=== PATIENT | male | born 1960 | race Asian ===

== ENCOUNTER 2024-04-03 12:05 | Inpatient (IN) | payer OTHER ==
[~2024-04-03] VITALS: Ht 172.7 cm; Wt 68.0 kg
[2024-04-03] MEDS: LORazepam 2MG/ML-1ML VIAL IV ONE (12:30)
[2024-04-03] MEDS: SODIUM CHLORIDE 0.9% 1,000 ML IVB ONE (12:30)
--- NOTE | 2024-04-03 12:54 | DVH ---
EXAM: XR Chest, 1 View CLINICAL INDICATION: sob TECHNIQUE: Frontal view of the chest. COMPARISON: None FINDINGS: LUNGS AND PLEURAL SPACES: Unremarkable. No consolidation. No pneumothorax. HEART: Unremarkable. No cardiomegaly. MEDIASTINUM: Unremarkable. Normal mediastinal contour. BONES/JOINTS: Unremarkable. No acute fracture. OTHER FINDINGS: . . . IMPRESSION: No acute cardiopulmonary process.
--- NOTE | 2024-04-03 12:58 | DVH ---
CLINICAL INFORMATION: 64 years old, Male; altered mental status. TECHNIQUE: Axial imaging was obtained through the brain without contrast. Coronal and sagittal refor matted images were obtained, reviewed, and stored. Images were reviewed in brain and bone windows. A ll CT scans at this medical facility are performed using dose modulation techniques as appropriate to a performed exam including the following: Automated exposure control was utilized; adjustment of the MA and/or KV according to patient size; and use of iterative reconstruction technique. CTDIvol = 53.55 mGy DLP = 857.47 mGy-cm COMPARISON: None FINDINGS: There is no acute intracranial hemorrhage or extraaxial fluid collection. No mass effect o r midline shift. The ventricles and sulci are within normal limits in size for age. Basal cisterns ar e patent. The calvarium is unremarkable. Paranasal sinuses and mastoid air cells are clear. IMPRESSION: No CT evidence of acute intracranial abnormality.
--- NOTE | 2024-04-03 13:07 | ED.PDOC ---
Altered Mental Status HPI Comments 64y M who presents to the ED via EMS for chief complaint of ALOC. Per EMS, pt having dizziness and generalized weakness and pt brought to [facility] for evaluation. Prior to entering facility, pt collapsed onto the floor and EMS was called to the scene. EMS upon arrival, states pt was bradycadic and with all vitals in normal range and pt was given atropine. Pt became more alert and was brought to the ED. Pt in the ED, has stable vitals but is noted to have associated chills. Pt in the ED, otherwise denies any recent sick contacts. Chief Complaint: ALOC Time Seen by MD: 13:00 Reviewed Notes: Sales Service Assistant Notes Allergies: Coded Allergies: NO KNOWN ALLERGIES (Unverified , 04/03/24) Information Source: Patient, Emergency Med Personnel Mode of Arrival: EMS Brought in by: EMS Past Medical History PAST MEDICAL HISTORY: DM, High Lipids Surgical History: Unknown Family History Family History: Unknown Social History Smoker: Non-Smoker Alcohol: Denies ETOH Use Drugs: Denies Drug Use Lives In: Home Constitutional: reports: chills, fatigue, weakness; denies: diaphoresis, fever, malaise, sweats, others EENTM: denies: blurred vision, double vision, ear bleeding, ear discharge, ear drainage, ear pain, ear ringing, eye pain, eye redness, hearing loss, mouth pain, mouth swelling, nasal discharge, nose bleeding, nose congestion, nose pain, photophobia, tearing, throat pain, throat swelling, voice changes, others Respiratory: denies: cough, hemoptysis, orthopnea, SOB at rest, shortness of breath, SOB with excertion, stridor, wheezing, others Cardiovascular: denies: chest pain, dizzy spells, diaphoresis, Dyspnea on exertion, edema, irregular heart beat, left arm pain, lightheadedness, palpitations, PND, syncope, others Gastrointestinal: denies: abdomen distended, abdominal pain, blood streaked bowels, constipated, diarrhea, dysphagia, difficulty swallowing, hematemesis, melena, nausea, poor appetite, poor fluid intake, rectal bleeding, rectal pain, vomiting, others Genitourinary: denies: burning, dysuria, flank pain, frequency, hematuria, inc ontinence, penile discharge, penile sore, pain, testicle pain, testicle swelling, urgency, others Neurological: denies: dizziness, fainting, headache, left sided numbness, left sided weakness, numbness, paresthesia, pre-existing deficit, right sided numbness, right sided weakness, seizure, speech problems, tingling, tremors, weakness, others Musculoskeletal: denies: back pain, gout, joint pain, joint swelling, muscle pain, muscle stiffness, neck pain, others Integumetry: denies: bruises, change in color, change in hair/nails, dryness, laceration, lesions, lumps, rash, wounds, others Allergic/Immunocompromised: denies: Difficulty Healing, Frequent Infections, Hives, Itching, others Hematologic/Lymphatic: denies: anemia, blood clots, easy bleeding, easy bruising, swollen glands, others Endocrine: denies: excessive hunger, excessive sweating, excessive thirst, excessive urination, flushing, intolerance to cold, intolerance to heat, unexplained weight gain, unexplained weight loss, others Psychiatric: denies: anxiety, bipolar disorder, depression, hopeless, panic disorder, schizophrenia, sleepless, suicidal, others All Other Systems: Reviewed and Negative Physical Exam General Appearance: Moderate Distress HEENT: Normal ENT Inspection, Pharynx Normal, TMs Normal Neck: Full Range of Motion, Non-Tender, Normal, Normal Inspection Respiratory: Chest Non-Tender, Lungs Clear, No Accessory Muscle Use, No Respiratory Distress, Normal Breath Sounds Cardiovascular: Other (Bradycardia in the field) Breast Exam: Deferred Gastrointestinal: No Organomegaly, Non Tender, No Pulsatile Mass, Normal Bowel Sounds, Soft Genitalia: Deferred Pelvic: Deferred Rectal: Deferred Extremities: No calf tenderness, Normal capillary refill, Normal inspection, Normal range of motion, Non-tender, No pedal edema Musculoskeletal : Apperance: Normal Neurologic: Alert, No Motor Deficits, No Sensory Deficits Cerebellar Function: NOT DONE Reflexes: NOT DONE Skin: Dry, Normal Color, Warm Peripheral Pulses: 3+ Radial (R), 3+ Radial (L) Lymphatic: No Adenopathy Was a procedure done? Was a procedure done?: No Differential Diagnosis (ALOC) Differential Diagnosis: Dehydration, Hypoglycemia, DKA, Encephalopathy, Hypoxemia, Closed Head Injury Other Differential Diagnosis metabolic encephalopathy X-Ray, Labs, Meds, VS Vital Signs Date Time Temp Pulse Resp B/P (MAP) Pulse Ox O2 Delivery O2 Flow Rate FiO2 1/11/25 12:49 96.7 99 30 166/108 (127) 100 04/03/24 12:12 94 PROCEDURE(s): HWOCT - HEAD WITHOUT CONTRAST IMPRESSION: No CT evidence of acute intracranial abnormality. EXAM: XR Chest, 1 View . IMPRESSION: No acute cardiopulmonary process. Patient alert to name. Blood pressure elevated. Unable to answer questions. He is shaking. CT of the head reviewed does not show any acute process. Vitals stable. As per he never had symptoms like this in the past. Has been weak recently which had taken him to the urgent care. He was bradycardic in the field. Was given atropine. Possible TIA. Establish intravenous access. Was given fluids. Reviewed his history. Explained to the family. Time of 1ST Reevaluation: 14:00 Reevaluation 1ST: Unchanged Patient Education/Counseling: Diagnosis, Treatment Family Education/Counseling: Diagnosis, Treatment Departure 1 Departure Time of Disposition: 13:34 Impression: Primary Impression: Bradycardia Additional Impressions: Uncontrolled diabetes mellitus Qualified Codes: E13.65 - Other specified diabetes mellitus with hyperglycemia Metabolic encephalopathy Disposition: ADMITTED INPATIENT Admit to: Med Surg Condition: Guarded Critical Care Note Critical Care Time?: Yes (45 min-critical care time only) Stability Stability form required: No Heart Score Heart Score: Heart Score Response (Comments) Value History Slightly Suspicious 0 EKG Normal 0 Age >65 2 Risk Factors >3 or Hx ASHD 2 Troponin Normal limit 0 Total 4 I personally scribed for YURIY ANAYA MD ([email or web address]) on 04/03/24 at 13:06. Electronically submitted by Mary Silva ([email or web address]). YURIY ANAYA MD Apr 03, 2024 13:06
[2024-04-03 13:49] VITALS: PULSE 68; RESP 12; O2SAT 100
[2024-04-03 14:10] LABS: Urine Bacteria None Seen /hpf (None Seen)
[2024-04-03 14:11] LABS: Basophils # (auto) 0 10 ^3/uL (0-0.2); Basophils % (auto) 0.2 % (0.0-2.0); Eosinophils # (auto) 0 10 ^3/uL (0-0.8); Eosinophils % (auto) 0.1 % (0.0-7.0); Hematocrit 43.7 % (41.0-53.0); Hemoglobin 14.8 g/dL (13.5-17.5); Lymphocytes # (auto) 0.7 10 ^3/uL (0.4-5.4); Lymphocytes % (auto) 4.3 % (10.0-50.0); Mean Corpuscular Hemoglobin 30.6 pg (28.0-32.0); Mean Corpuscular Hgb Conc. 33.9 g/dL (32.0-36.0); Mean Corpuscular Volume 90.3 fL (80.0-100.0); Monocytes # (auto) 0.4 10 ^3/uL (0-1.3); Monocytes % (auto) 2.8 % (0.0-12.0); Neutrophils # (auto) 14.2 10 ^3/uL (1.6-8.6); Neutrophils % (auto) 92.6 % (37.0-80.0); Platelet Count (auto) 237 10^3/uL (140-450); Red Blood Cells 4.84 10^6/uL (4.5-5.90); Red Cell Distribution Width 13.1 % (11.8-14.3); White Blood Cell 15.3 10^3/uL (4.4-10.8)
[2024-04-03 14:26] LABS: Urine Blood Negative /uL (Negative); Urine Clarity Clear (Clear); Urine Color Light-Yellow (Yellow); Urine Protein, UAD Negative (Negative); Urine Specific Gravity 1.017 (1.001-1.035); Urine Squamous Epithelial Cell None Seen /hpf (<5); Urine Urobilinogen Normal (Negative); Urine WBC <1 /hpf (0 - 3)
[2024-04-03 14:28] LABS: Chloride 106 mmol/L (98-107); Potassium 4.1 mmol/L (3.5-5.1); Sodium 140 mmol/L (136-145)
[2024-04-03 14:29] LABS: Anion Gap 8 (5-15); Calcium 9.6 mg/dL (8.7-10.4); Carbon Dioxide 26 mmol/L (20-31)
[2024-04-03 14:34] LABS: BUN/Creatinine Ratio 21.2 (10.0-20.0); Blood Urea Nitrogen 21 mg/dL (9-23)
[2024-04-03 14:35] LABS: Blood Alcohol 3.2 mg/dL (<10)
[2024-04-03 14:36] LABS: Glucose 157 mg/dL (74-106)
[2024-04-03] MEDS ORDERED: DEXTROSE (50%) 50ML SYRG IV PRN (19:30)
[2024-04-03] MEDS ORDERED: ACETAMINOPHEN 325 MG TAB PO PRN (19:30)
[2024-04-03] MEDS ORDERED: DOCUSATE SOD 100 MG CAP PO PRN (19:30)
[2024-04-03 19:38] VITALS: PULSE 70; RESP 13; O2SAT 95
[2024-04-03] MEDS: cefTRIAXone 1GM/50ML D5W 50 ML IV ONE (19:52)
[2024-04-03] MEDS: HYDROcodone-ACET 5/325MG TAB PO PRN (20:14)
[2024-04-03] MEDS: ONDANSETRON HCL 4 MG/2 ML VIAL IV PRN (20:19)
[2024-04-03] MEDS ORDERED: MORPHINE SULFATE INJ 2 MG/ml SYRG IV PRN (21:00)
[2024-04-03] MEDS ORDERED: NITROGLYCERIN 0.4 MG SL TAB SL PRN (21:00)
--- NOTE | 2024-04-03 21:00 | DVHHP2 ---
History of Present Illness Reason for Visit: Altered mental status History of Present Illness The patient is a 64-year-old male with past medical history of hypertension, hyperlipidemia, and diabetes mellitus who presented to [facility] ED for evaluation of altered level of consciousness. Patient reports symptoms pr ogressively get worse with generalized weakness, dizziness, syncopal episode, so EMS were called. Patient was seen and evaluated in the ED, laboratory data shows WBC 15.3, platelets 237, sodium 140, potassium 4.1, BUN 21, creatinine 0.99, GFR 84, glucose 157, troponin 4, blood pressure 171/102 trending down to 141/80, heart rate 62, temperature 97.6 F, O2 saturation 99% on oxygen. Head CT showed no evidence of acute intracranial abnormality. Patient was started on IV antibiotic regimen Rocephin, please see medication orders section in the computer. On my assessment, patient denies chest pain, no headache, no d izziness, no diaphoresis, no diarrhea, no nausea, no vomiting, no fever, no chills. Patient was admitted for further evaluation and medical management. Past Medical History DM, High Lipids, hypertension Past Surgical History Unknown Family History Reviewed, noncontributory to the management of this case. Past Social History The patient lives at home, denies smoking, alcohol or illicit drugs abuse. Review of Systems Constitutional: Yes: Chills, Weakness, Other (Fatigue); No: Fever, Sweats, Malaise Eyes: No: Pain, Vision change, Conjunctivae inflammation, Eyelid inflammation, Other, Redness ENT: No: Ear pain, Ear discharge, Nose pain, Nose discharge, Nose congestion, Mouth pain, Mouth swelling, Throat pain, Throat swelling, Other Respiratory: No: Cough, Dry, Shortness of breath, SOB with excertion, Wheezing, Hemoptysis, Pleuritic Pain, Sputum, Wheezing, Other Cardiovascular: No: Chest Pain, Palpitations, Orthopnea, Paroxysmal Noc. Dyspnea, Edema, Lt Headedness, Other Gastrointestinal: No: Nausea, Vomiting, Abdominal Pain, Diarrhea, Constipation, Melena, Hematochezia, Other Genitourinary: No Dysuria, No Frequency, No Incontinence, No Hematuria, No Retention, No Other Musculoskeletal: No: other, neck pain, shoulder pain, arm pain, back pain, hand pain, leg pain, foot pain Skin: No: Rash, Lesions, Jaundice, Bruising, Other Neurological: No: Weakness, Numbness, Incoordination, Change in speech, Confusion, Seizures, Other Allergies: Coded Allergies: NO KNOWN ALLERGIES (Unverified , 04/03/24) Medications Current Medications Medications Dose Ordered Sig/Verna Route Start Time Stop Time Status Last Admin Dose Admin Ceftriaxone Sodium 50 ml @ 100 mls/hr DAILY@09 IV 04/04/24 09:00 Hydralazine HCl 10 mg Q6HP PRN IV 04/03/24 19:30 Diagnostic Test (Pha) 1 strip ACHS 04/03/24 22:00 Insulin Human Regular ACHS SC 04/03/24 22:00 Dextrose 50 ml UD PRN IV 04/03/24 19:30 Sodium Chloride 10 ml Q8HR IV 04/03/24 22:00 Acetaminophen/ Hydrocodone Bitart 1 tab Q4HP PRN PO 04/03/24 19:30 04/03/24 20:14 1 TAB Ondansetron HCl 4 mg Q4HP PRN IV 04/03/24 19:30 04/03/24 20:19 4 MG Docusate Sodium 100 mg BIDPRN PRN PO 04/03/24 19:30 Acetaminophen 650 mg Q6HP PRN PO 04/03/24 19:30 Exam Vital Signs Vital Signs Date Time Temp Pulse Resp B/P (MAP) Pulse Ox O2 Delivery O2 Flow Rate FiO2 04/03/24 19:38 98.0 70 13 121/73 (89) 95 98.0 04/03/24 13:49 Nasal Cannula* 2 28 General Appearance: Alert, Oriented X3, Cooperative, No acute distress HEENT: Atraumatic, PERRLA, EOMI, Mucous membr. moist/pink Respiratory: Clear to auscultation, Normal air movement Cardiovascular: Regular rate, Normal S1, Normal S2, No murmurs Abdominal: Normal bowel sounds, Soft, No tenderness, No hepatospenomegaly, No masses Extremities: No clubbing, No cyanosis, No edema, Normal pulses, No te nderness/swelling Skin: No rashes, No breakdown, No significant lesion Neuro: Normal speech, Normal tone, Sensation intact, Cranial nerves 3-12 NL, Reflexes 2+, Other (Generalized weakness) Psych/Mental Status: Mental status NL, Mood NL Labs/Xrays Labs Test 04/03/24 13:44 04/03/24 13:40 Range/Units White Blood Count 15.3 H 4.4-10.8 10^3/uL Red Blood Count 4.84 4.5-5.90 10^6/uL Hemoglobin 14.8 13.5-17.5 g/dL Hematocrit 43.7 41.0-53.0 % Mean Corpuscular Volume 90.3 80.0-100.0 fL Mean Corpuscular Hemoglobin 30.6 28.0-32.0 pg Mean Corpuscular Hemoglobin Concent 33.9 32.0-36.0 g/dL Red Cell Distribution Width 13.1 11.8-14.3 % Platelet Count 237 140-450 10^3/uL Mean Platelet Volume 8.0 6.9-10.8 fL Neutrophils (%) (Auto) 92.6 H 37.0-80.0 % Lymphocytes (%) (Auto) 4.3 L 10.0-50.0 % Monocytes (%) (Auto) 2.8 0.0-12.0 % Eosinophils (%) (Auto) 0.1 0.0-7.0 % Basophils (%) (Auto) 0.2 0.0-2.0 % Neutrophils # (Auto) 14.2 H 1.6-8.6 10 ^3/uL Lymphocytes # (Auto) 0.7 0.4-5.4 10 ^3/uL Monocytes # (Auto) 0.4 0-1.3 10 ^3/uL Eosinophils # (Auto) 0 0-0.8 10 ^3/uL Basophils # (Auto) 0 0-0.2 10 ^3/uL Nucleated Red Blood Cells 0.0 % Sodium Level 140 136-145 mmol/L Potassium Level 4.1 3.5-5.1 mmol/L Chloride Level 106 98-107 mmol/L Carbon Dioxide Level 26 20-31 mmol/L Anion Gap 8 5-15 Blood Urea Nitrogen 21 9-23 mg/dL Creatinine 0.99 0.700-1.30 mg/dL Glomerular Filtration Rate Calc 84 >90 mL/min BUN/Creatinine Ratio 21.2 H 10.0-20.0 Serum Glucose 157 H 74-106 mg/dL Calcium Level 9.6 8.7-10.4 mg/dL Troponin I High Sensitivity 4 </=54 ng/L Plasma/Serum Blood Alcohol 3.2 <10 mg/dL Urine Color Light-yellow Yellow Urine Clarity Clear Clear Urine pH 7.0 5.0-9.0 Urine Specific [place] 1.017 1.001-1.035 Urine Protein Negative Negative Urine Ketones 1+ H Negative Urine Blood Negative Negative /uL Urine Nitrite Negative Negative Urine Bilirubin Negative Negative Urine Urobilinogen Normal Negative mg/dL Urine Leukocyte Esterase Negative Negative /uL Urine RBC 1 0 - 3 /hpf Urine WBC <1 0 - 3 /hpf Urine Squamous Epithelial Cells None seen <5 /hpf Urine Bacteria None seen None Seen /hpf Urine Glucose 1+ H Normal mg/dL PATIENT: MILAGROS FIGUEROA ACCT: [id number] UNIT: [id number] : 1960 LOC: ER ROOM / BED: / AGE / SEX: 64 / M ADM STATUS: REG ER SERVICE 1223 ORDERING PHYSICIAN: YURIY ANAYA MD PROCEDURE(s): HWOCT - HEAD WITHOUT CONTRAST REASON: altered ORDER NUMBER(s): [id number], ACCESSION NUMBER(s): [id number] CLINICAL INFORMATION: 64 years old, Male; altered mental status. TECHNIQUE: Axial imaging was obtained through the brain without contrast. Coronal and sagittal reformatted images were obtained, reviewed, and stored. Images were reviewed in brain and bone windows. All CT scans at this medical facility are performed using dose modulation techniques as appropriate to a performed exam including the following: Automated exposure control was utilized; adjustment of the MA and/or KV according to patient size; and use of iterative reconstruction technique. CTDIvol = 53.55 mGy DLP = 857.47 mGy-cm COMPARISON: None FINDINGS: There is no acute intracranial hemorrhage or extraaxial fluid collection. No mass effect or midline shift. The ventricles and sulci are within normal limits in size for age. Basal cisterns are patent. The calvarium is unremarkable. Paranasal sinuses and mastoid air cells are clear. IMPRESSION: No CT evidence of acute intracranial abnormality. ORDERING PHYSICIAN: YURIY ANAYA MD PROCEDURE(s): CXRP - CHEST PORTABLE REASON: sob ORDER NUMBER(s): [id number], ACCESSION NUMBER(s): [id number] EXAM: XR Chest, 1 View CLINICAL INDICATION: sob TECHNIQUE: Frontal view of the chest. COMPARISON: None FINDINGS: LUNGS AND PLEURAL SPACES: Unremarkable. No consolidation. No pneumothorax. HEART: Unremarkable. No cardiomegaly. MEDIASTINUM: Unremarkable. Normal mediastinal contour. BONES/JOINTS: Unremarkable. No acute fracture. OTHER FINDINGS: IMPRESSION: No acute cardiopulmonary process. Assessment/Plan Assessment/Plan Metabolic encephalopathy Generalized weakness Leukocytosis, unspecified Hypertensive urgency Plan 1. Admit to telemetry unit 2. Breathing treatment 3. Pain control management 4. IV antibiotic management 5. Management of fluids and electrolytes 6. Consultation for hospitalist 7. Diagnostic test head CT 8. DVT prophylaxis-on aspirin 9. Repeat labs CBC, CMP in a.m. 10. Continue with current medical management 11. Treatment plan discussed with patient and RN. Patient verbalized understanding. Plan discussed with: Patient, Other (RN) My Orders Orders - BALTAZAR GOLDBERG DNP Procedure Category Date Status Time Consistent DIET 04/04/24 Transmitted Carb(Ccho)Diabetes Breakfast Ceftriaxone 1gm/50ml PHA 04/04/24 In Process D5w (Rocephin) 09:00 Blood Culture [place] 04/03/24 In Process 19:20 Hydralazine Injection PHA 04/03/24 In Process (Apresoline Inject 19:30 Glucose Blood PHA 04/03/24 In Process (Accu-Chek Comfort 22:00 Insulin R (Human) PHA 04/03/24 In Process (Insulin R) 22:00 Dextrose 50% Syringe PHA 04/03/24 In Process 19:30 Allergies RHETT 04/03/24 In Process 19:20 Code Status CODE 04/03/24 Transmitted 19:20 Sodium Chloride Lock PHA 04/03/24 In Process (Saline Lock Ns) 22:00 Oxygen Per Hour RT 04/03/24 Transmitted 19:20 Hydrocodone-Acet PHA 04/03/24 In Process 5/325mg Tab ([place] 19:30 Ondansetron Hcl PHA 04/03/24 In Process (Zofran) 19:30 Docusate Sodium PHA 04/03/24 In Process Capsule (Colace 19:30 Complete Blood Count LAB 04/04/24 Verified 04:00 Comprehensive LAB 04/04/24 Verified Metabolic Panel 04:00 Condition: Serious RHETT 04/03/24 In Process 19:20 Acetaminophen Tablet PHA 04/03/24 In Process (Tylenol Tablet) 19:30 Bedrest With Bathroom RHETT 04/03/24 In Process Privileg 19:20 Sequential RHETT 04/03/24 In Process Compression Device Problem List: (1) Metabolic encephalopathy (2) Hypertensive urgency (3) Leukocytosis, unspecified (4) Generalized weakness Date of Service: Apr 03, 2024 Billing Provider: BALTAZAR GOLDBERG DNP Common Visit Codes: [id number] INP/OBS CARE (HIGH) BALTAZAR GOLDBERG DNP Apr 03, 2024 21:00
[2024-04-03] MEDS: ACCU-CHEK COMFORT CURVE STRIP VI SCH (21:58)
[2024-04-03] MEDS: SODIUM CHLOR 0.9% PF (SALINE LOCK) 10ML VIAL/SYR IV SCH (22:00)
[2024-04-03] MEDS: InsuLIN REG 1unit/0.01ml Soln (100units/ml) SC SCH (22:11)
[2024-04-04] VITALS (9 sets, daily range): BP systolic 112–144; BP diastolic 68–86; PULSE 52–90; RESP 17–20; TEMP 97.4–98.3; O2SAT 92–100
--- NOTE | 2024-04-04 01:51 | ECG ---
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
[2024-04-04 06:24] LABS: Basophils # (auto) 0 10 ^3/uL (0-0.2); Basophils % (auto) 0.3 % (0.0-2.0); Eosinophils # (auto) 0 10 ^3/uL (0-0.8); Hematocrit 42.2 % (41.0-53.0); Hemoglobin 14.5 g/dL (13.5-17.5); Lymphocytes # (auto) 1.1 10 ^3/uL (0.4-5.4); Lymphocytes % (auto) 11.5 % (10.0-50.0); Mean Corpuscular Hemoglobin 30.8 pg (28.0-32.0); Mean Corpuscular Hgb Conc. 34.4 g/dL (32.0-36.0); Mean Corpuscular Volume 89.7 fL (80.0-100.0); Monocytes # (auto) 0.4 10 ^3/uL (0-1.3); Monocytes % (auto) 4.6 % (0.0-12.0); Neutrophils # (auto) 7.7 10 ^3/uL (1.6-8.6); Neutrophils % (auto) 83.6 % (37.0-80.0); Nucleated Red Blood Cells % 0.1 %; Platelet Count (auto) 282 10^3/uL (140-450); White Blood Cell 9.2 10^3/uL (4.4-10.8)
[2024-04-04 06:45] LABS: Alanine Aminotransferase 39 U/L (7-40); Alkaline Phosphatase 109 U/L (46-116); Anion Gap 8 (5-15); Aspartate Aminotransferase 17 U/L (13-40); BUN/Creatinine Ratio 18.1 (10.0-20.0); Blood Urea Nitrogen 15 mg/dL (9-23); Calcium 9.5 mg/dL (8.7-10.4); Carbon Dioxide 24 mmol/L (20-31); Potassium 3.6 mmol/L (3.5-5.1); Sodium 140 mmol/L (136-145)
[2024-04-04 06:46] LABS: Albumin 4.2 g/dL (3.2-4.8); Bilirubin, Total 0.8 mg/dL (0.2-1.0); Total Protein 6.6 g/dL (5.7-8.2)
[2024-04-04 07:02] LABS: Chloride 108 mmol/L (98-107); Glucose 136 mg/dL (74-106)
[2024-04-04] MEDS: cefTRIAXone 1GM/50ML D5W 50 ML IV SCH (09:39)
[2024-04-04] MEDS ORDERED: METF-489 PO (15:04)
[2024-04-04] MEDS ORDERED: ATOR20TA50 PO (15:04)
[2024-04-04] MEDS ORDERED: ALL100T PO (15:04)
--- NOTE | 2024-04-04 19:44 | DVHPN2 ---
Assessment/Plan Assessment/Plan Progress note 64 M admitted for altered level of consciousness. On my exam, patient is fully alert and orietned, complained of spinning sensation and nausea with vomiting since [address] head clear, HINTS negative. Will attempt apley maneuver tomorrrow Physcial exam Alert oriented x3 clear breath sounds s1 s2 RRR no murmur abdomen soft nontender no LE edema labs imaging and ekg reviewed CTH clear assessment and plan vertigo central vs peripheral dehydration 2/2 vomiting elevated bp meclizine zofran will do apley maneuver tomorrow r/o organic causes ns bolus 500 followed by oral hydration will refrain from antihypertensive for now and treat possible underlying cause dvt ppx ambulatory diet regular Plan discussed with: Patient My Orders Orders - SIOBHAN MARTINEZ MD Procedure Category Date Status Time Meclizine Tablet PHA 04/04/24 Transmitted (Antivert Tablet) 22:00 Ondansetron Hcl PHA 04/04/24 Transmitted (Zofran) 19:45 Date of Service: Apr 04, 2024 Billing Provider: SIOBHAN MARTINEZ MD Common Visit Codes: [id number] INP/OBS CARE(HIGH) SIOBHAN MARTINEZ MD Apr 04, 2024 19:44
[2024-04-04] MEDS ORDERED: ONDANSETRON HCL 4 MG/2 ML VIAL IV PRN (19:45)
[2024-04-04] MEDS: MECLIZINE HCL 25 MG TAB PO SCH (21:01)
[2024-04-05 01:00] VITALS: BP 128/89; PULSE 65; RESP 19; TEMP 98.1; O2SAT 99
[2024-04-05 05:00] VITALS: BP 125/77; PULSE 67; RESP 68; TEMP 98.9; O2SAT 49
[2024-04-05 08:10] VITALS: PULSE 58; RESP 16; O2SAT 100
[2024-04-05 17:00] VITALS: BP_SYST 118; BP_SYST 159; BP_DIAS 64; BP_DIAS 90; PULSE 56; RESP 18; TEMP 97.8; O2SAT 99
--- NOTE | 2024-04-05 17:03 | DVH ---
PROCEDURE: MRI BRAIN HEAD WO CONTRAST INDICATION: R/O STROKE EXAM DATE: 04/05/2024 04:30 PM COMPARISON: None TECHNIQUE: MRI of the brain without intravenous contrast. FINDINGS: Diffusion weighted images of the brain demonstrate no evidence of acute infarction. There is no evidence of acute intracranial hemorrhage, extra-axial collection, mass effect, midline s hift, herniation or hydrocephalus. The ventricles, sulci and cisterns appear age appropriate. Mild changes of chronic microvascular ischemic disease There are no signal abnormalities on the susceptibility weighted sequences. The major vascular flow voids are present. The visualized paranasal sinuses and mastoid air cells are clear. The surrounding soft tissues and o sseous structures are unremarkable. IMPRESSION: 1. No evidence of acute infarction, intracranial hemorrhage, mass effect or hydrocephalus. Mild humphries es of chronic microvascular ischemic disease. HS:Y
[2024-04-05] MEDS: hydrALAZINE HCL 20 MG/ML VL IV PRN (18:03)
[2024-04-05 20:00] VITALS: PULSE 70; RESP 20; O2SAT 99
--- NOTE | 2024-04-05 20:54 | DVHPN2 ---
Assessment/Plan Assessment/Plan Progress note 64 M admitted for altered level of consciousness. On my exam, patient is fully alert and orietned, complained of spinning sensation and nausea with vomiting since [address] head clear, HINTS negative. W seen today during rounds. 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 attempted apley, with nystagmus, no nausea or significant improvement. pending head mri Physcial exam Alert oriented x3 clear breath sounds s1 s2 RRR no murmur abdomen soft nontender no LE edema labs imaging and ekg reviewed CTH clear assessment and plan vertigo likely peripheral, central ruled out dehydration 2/2 vomiting elevated bp meclizine zofran s/p apley r/o organic causes ns bolus 500 followed by oral hydration will refrain from antihypertensive for now and treat possible underlying cause brain [place] [facility] with follow up if improving tomorrow dvt ppx ambulatory diet regular Plan discussed with: Patient, Spouse My Orders Orders - SIOBHAN MARTINEZ MD Procedure Category Date Status Time Brain Head Wo Contrast MRI 04/05/24 Resulted 16:10 Date of Service: Apr 05, 2024 Billing Provider: SIOBHAN MARTINEZ MD Common Visit Codes: [id number] INP/OBS CARE(HIGH) SIOBHAN MARTINEZ MD Apr 05, 2024 20:54
[2024-04-05 21:00] VITALS: BP 122/62; PULSE 73; RESP 18; TEMP 97.2; O2SAT 98
[2024-04-06] VITALS (8 sets, daily range): BP systolic 119–137; BP diastolic 73–88; PULSE 57–97; RESP 16–19; TEMP 97.3–98.1; O2SAT 96–99
[2024-04-06] MEDS ORDERED: MECL-90 PO (11:03)
--- NOTE | 2024-04-06 12:41 | DVHDS2 ---
Discharge Summary Date of Admission Apr 03, 2024 at 20:59 Date of Discharge: Apr 06, 2024 Labs/Diagnostic Data: Laboratory Results Test 04/06/24 12:04 04/04/24 05:54 04/03/24 13:44 04/03/24 13:40 POC Glucose 191 mg/dl (70-106) White Blood Count 9.2 10^3/uL (4.4-10.8) Red Blood Count 4.70 10^6/uL (4.5-5.90) Hemoglobin 14.5 g/dL (13.5-17.5) Hematocrit 42.2 % (41.0-53.0) Mean Corpuscular Volume 89.7 fL (80.0-100.0) Mean Corpuscular Hemoglobin 30.8 pg (28.0-32.0) Mean Corpuscular Hemoglobin Concent 34.4 g/dL (32.0-36.0) Red Cell Distribution Width 13.0 % (11.8-14.3) Platelet Count 282 10^3/uL (140-450) Mean Platelet Volume 8.1 fL (6.9-10.8) Neutrophils (%) (Auto) 83.6 % (37.0-80.0) Lymphocytes (%) (Auto) 11.5 % (10.0-50.0) Monocytes (%) (Auto) 4.6 % (0.0-12.0) Eosinophils (%) (Auto) 0.0 % (0.0-7.0) Basophils (%) (Auto) 0.3 % (0.0-2.0) Neutrophils # (Auto) 7.7 10 ^3/uL (1.6-8.6) Lymphocytes # (Auto) 1.1 10 ^3/uL (0.4-5.4) Monocytes # (Auto) 0.4 10 ^3/uL (0-1.3) Eosinophils # (Auto) 0 10 ^3/uL (0-0.8) Basophils # (Auto) 0 10 ^3/uL (0-0.2) Nucleated Red Blood Cells 0.1 % Sodium Level 140 mmol/L (136-145) Potassium Level 3.6 mmol/L (3.5-5.1) Chloride Level 108 mmol/L (98-107) Carbon Dioxide Level 24 mmol/L (20-31) Anion Gap 8 (5-15) Blood Urea Nitrogen 15 mg/dL (9-23) Creatinine 0.83 mg/dL (0.700-1.30) Glomerular Filtration Rate Calc 97 mL/min (>90) BUN/Creatinine Ratio 18.1 (10.0-20.0) Serum Glucose 136 mg/dL (74-106) Calcium Level 9.5 mg/dL (8.7-10.4) Total Bilirubin 0.8 mg/dL (0.2-1.0) Aspartate Amino Transferase (AST) 17 U/L (13-40) Alanine Aminotransferase (ALT) 39 U/L (7-40) Alkaline Phosphatase 109 U/L (46-116) Total Protein 6.6 g/dL (5.7-8.2) Albumin 4.2 g/dL (3.2-4.8) Troponin I High Sensitivity 4 ng/L (</=54) Plasma/Serum Blood Alcohol 3.2 mg/dL (<10) Urine Color Light-yellow (Yellow) Urine Clarity Clear (Clear) Urine pH 7.0 (5.0-9.0) Urine Specific [place] 1.017 (1.001-1.035) Urine Protein Negative (Negative) Urine Ketones 1+ (Negative) Urine Blood Negative /uL (Negative) Urine Nitrite Negative (Negative) Urine Bilirubin Negative (Negative) Urine Urobilinogen Normal mg/dL (Negative) Urine Leukocyte Esterase Negative /uL (Negative) Urine RBC 1 /hpf (0 - 3) Urine WBC <1 /hpf (0 - 3) Urine Squamous Epithelial Cells None seen /hpf (<5) Urine Bacteria None seen /hpf (None Seen) Urine Glucose 1+ mg/dL (Normal) Other Laboratory Tests 04/04/24 05:54 Brief Hx & Hospital Course: 64 M admitted for altered level of consciousness. On my exam, patient is fully alert and orietned, complained of spinning sensation and nausea with vomiting since [address] head clear, HINTS negative. apley with no significant improvement. able to ambulate, still dizzy. MRI clear. Neuro intact, gait slow. transfer to [place] [facility] E[facility] vs [facility] for [facility] follow up Condition at Discharge: Fair Final Diagnosis/Problems List vertigo Discharge Disposition: Acute Care Facility Discharge Instruct/Medications Diet: Regular Activity: No Restrictions, As Tolerated Follow Up/Referral: ENT neurology Medications: meclizine 39 Discharge Statement: "Patient was advised to return to the ER or call 911 if any headaches, dizziness, shortness of breath, chest pain, abdominal pain, bleeding, fevers, or worsening of medical condition. Patient was counseled about treatment plan, medications, possible side effects, patientverbalized understanding. All questions were answered to the best of my ability. This discharge took greater then 30 minutes in planning, reviewing documentation, counseling the patient, and discussing with other team members." ASSESSMENT ASSESSMENT Assessment vertigo likely peripheral, central ruled out dehydration 2/2 vomiting elevated bp Date of Service: Apr 06, 2024 Billing Provider: SIOBHAN MARTINEZ MD Common Visit Codes: 85638-PEV/OBS DISCH DAY >30min SIOBHAN MARTINEZ MD Apr 06, 2024 12:41
== END 2024-04-06 19:59 | disposition short-term general hospital (02) | DRG 640 ==
LOC: EDBD 12:05 → ER 12:05 → TELE 20:59 → TELE-EAST 23:35
PROVIDERS: ADMIT Nurse Practitioner Family; ATTEND Student in an Organized Health Care Education/Training Program
DX: E86.0 Dehydration (principal); G93.41 Metabolic encephalopathy; I16.0 Hypertensive urgency; E78.5 Hyperlipidemia, unspecified; H81.399 Other peripheral vertigo, unspecified ear; E11.65 Type 2 diabetes mellitus with hyperglycemia
CPT/HCPCS: 36415; 70450; 70551; 71045; 80048; 80053; 80320; 81001; 82962; 84484; 85025; 87040; 93005; 96365; 96375; 97163; 99291; G0378; J1815; J2405